=== PATIENT | female | born 1975 | race Caucasian/White ===

== ENCOUNTER 2017-09-30 11:09 | Emergency (ER) | payer MEDICAID, SELFPAY ==
[2017-09-30 11:11] VITALS: BP 161/90; PULSE 93; RESP 16; TEMP 36.4; O2SAT 99; BMI 22.8
--- NOTE | 2017-09-30 11:33 | ED.DCSUM_ITS ---
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 in front of her slightly to the left she felt discomfort in her neck that is persisted, there is no radiation into her extremities, she has no direct trauma, no nausea vomiting fever cough chest pain numbness weakness or paresthesias but she has neck discomfort with any type of movement flexion extension or rotation, she has no history of neck ailment she is concerned about a fracture Physical Examination: [] On exam she is a large woman she is in no distress her head neck chest exam unremarkable lungs are clear heart tones are distant abdomen soft nontender the upper lower extremities unremarkable without cyanosis clubbing or edema her gait is strong sitting stable her motor and sensory strength exam are normal she is very mild pain to palpation of the midline neck there is some pain discomfort to the right and left paracervical regions there is no instability or step-off she is able to rotate her right left flex and extend but has some mild discomfort and there is no neurologic abnormalities or radiation when she moves her neck Test Results: [] Emergency Department Course and Treatment: [] Given her complaints and her concerns she is medicated with morphine Zofran CT neck noncontrast is obtained because of her concerns CT neck is unremarkable all this was explained to the patient she will follow with her doctors that she indicated understands she may require definitive other management as an outpatient Naprosyn for pain she will return for change in symptoms Treatment Plan: [] Disposition: [] Home stable Impression: [] Neck pain This note was generated with [employer] dictation software. It may contain incorrect words, spelling, and punctuation that were not noted in review of the chart prior to signing ED Disposition - Plan for ED Patient: Chief Complaint: Other, Pain/Inj Referrals: Clarissa Self MD [STAFF PHYSICIAN] -
[2017-09-30] MEDS: Ondansetron ODT 4 MG Tablet PO (11:51)
[2017-09-30] MEDS: morphine 8 MG/ML Syringe SC (11:52)
--- NOTE | 2017-09-30 13:18 | ED.DEP ---
ED Disposition - Plan for ED Patient: Chief Complaint: Other, Pain/Inj Prescriptions: Naproxen [Naprosyn] 500 mg PO BID PRN #20 tab Referrals: Clarissa Self MD [STAFF PHYSICIAN] -
[2017-09-30 13:52] VITALS: PULSE 82; RESP 17; O2SAT 97
== END 2017-09-30 13:53 | disposition home or self-care (01) ==
PROVIDERS: Emergency Provider Emergency Medicine; Family Provider Internal Medicine; PCP Internal Medicine
DX: M54.2 Cervicalgia (principal)
CPT/HCPCS: 72125; 96372; 99283

== ENCOUNTER 2018-03-24 11:24 | Emergency (ER) | payer MEDICAID, SELFPAY ==
[2018-03-24 11:25] VITALS: BP 173/100; PULSE 101; RESP 20; TEMP 36.6; O2SAT 97; BMI 38.7
[2018-03-24 13:15] LABS: Bacteria 0 SEEN /hpf (None Seen); Mucous, Urine 0 SEEN /hpf (<or=2+); Red Blood Cells-Urine 0 SEEN /hpf (0-5); White Blood Cells 0 SEEN /hpf (0-5)
[2018-03-24 13:17] VITALS: BP 121/73; PULSE 84; RESP 16; O2SAT 98
[2018-03-24 13:19] LABS: Color, Urine Yellow (Yellow); Glucose, Dipstick Normal (Normal); Ketone-Dipstick Negative (Negative); Leukocyte Esterase-Dipstick Negative /ul (Negative); Nitrite-Dipstick Negative (Negative); Occult Blood-Urine 10 /ul (Negative); Protein-Dipstick Negative (Negative); Specific Gravity, Urine 1.015 (1.002-1.030); Urine Bilirubin Dipstick Negative (Negative); Urine Clarity Clear (Clear); Urine Urobilinogen Normal (Normal)
[2018-03-24 13:27] LABS: Squamous Epithelial Cells - UA 0-5 SEEN /hpf (5-10)
[2018-03-24 13:31] LABS: Anion Gap 10 (5-15); BUN 10 mg/dL (7-18); BUN/Creat Ratio 16.3 RATIO (10-20); Calcium,Total 8.6 mg/dL (8.5-10.1); Chloride 105 mmol/L (98-107); Creatinine, Serum 0.61 mg/dL (0.55-1.02); EST Glomerular Filtration Rate 115 mL/min (>60); Est Glom Filt Rate - Afr Amer 139 mL/min (>60); Estimated Creatinine Clearance 114.77 ml/min; Glucose 84 mg/dL (74-106); Sodium Level 141 mmol/L (136-145)
[2018-03-24] MEDS: Mixture 30 ML Bottle 10 ML TOPICAL (15:16)
--- NOTE | 2018-03-24 15:36 | ED.VISSUMM ---
- ER Visit Summary Date of Service: 03/24/18 Chief Complaint: Nosebleed History of Present Illness: The patient is a 42 F who presents with intermittent bleeding from the right side of her nose. She reports blood predominantly in the back of her throat. There is no history of trauma. There is no history of hypertension, bleeding diathesis, she is on no antiplatelet or anticoagulant. She denies prior history of nosebleed. She does have history anxiety and hyperactive airway disease. Physical Examination: Vitals are marked for an elevated blood pressure of 173/80. Repeat blood pressure several hours later without treatment is 121/73. BMI is 38.7. There is blood noted in the posterior pharynx. There is no blood over Calci-Mix plexus and there is no blood noted inferior to the inferior turbinate. There is blood noted past the inferior turbinate. The remainder of the HEENT exam is unremarkable. There is no bruising noted. There is no petechia. Test Results: Since BMP and UA are negative. Emergency Department Course and Treatment: Because of elevated blood pressure and not seen a doctor in several years basic mental panel and UA were obtained to assess for endorgan renal dysfunction. Treatment Plan: Patient was anesthetized with Dameon solution. A 7.5 Italian Rhino Rocket was placed. She was placed on antibiotics. She was referred to Dr. Rusty Perry. Disposition: Discharge in stable improved condition Impression: Epistaxis right uncertain etiology This note was generated with [employer] dictation software. It may contain incorrect words, spelling, and punctuation that were not noted in review of the chart prior to signing ED Disposition - Plan for ED Patient: Disposition: Home or Assisted Living Instructions: Nosebleed Prescriptions: Amoxicillin 875 mg PO BID #10 tab Referrals: Jess Almaraz MD [Primary Care Provider] - Charbel Perry MD [STAFF PHYSICIAN] - 3-5 Days Additional Instructions: Call Dr. Perry's office for appointment to be seen in 3-5 days. Take antibiotics until packing is removed.
[2018-03-24 15:57] VITALS: BP 141/92; RESP 18; O2SAT 97
== END 2018-03-24 15:58 | disposition home or self-care (01) ==
PROVIDERS: Emergency Provider Emergency Medicine; Family Provider Internal Medicine; PCP Internal Medicine
DX: R04.0 Epistaxis (principal); E66.9 Obesity, unspecified; Z68.38 Body mass index [BMI] 38.0-38.9, adult; J45.909 Unspecified asthma, uncomplicated; F41.9 Anxiety disorder, unspecified
CPT/HCPCS: 30905; 80048; 81001; 99283; A4216

== ENCOUNTER 2018-03-25 08:18 | Emergency (ER) | payer MEDICAID, SELFPAY ==
[2018-03-24 11:25] VITALS: BMI 38.7
[2018-03-25 08:19] VITALS: BP 144/110; PULSE 112; RESP 20; TEMP 36.7; O2SAT 100; BMI 37.9
--- NOTE | 2018-03-25 08:37 | ED.DCSUM_ITS ---
- ER Visit Summary Date of Service: 03/25/18 Chief Complaint: Nosebleed History of Present Illness: The patient is a 42 F seen in the ED yesterday for nosebleed. Packing was placed. She reports headache and increased anxiety from having the packing and is requesting it to be removed. She did call ENT and has an appointment on the . Physical Examination: Blood pressure is 144/110, heart rate 112. Patient sitting upright in bed. She is intermittently tearful. Head neck examination does reveal Rhino Rocket in place in the right nare. No bleeding noted around the packing. Heart is tachycardic. Lungs sounds are clear. Test Results: [] Emergency Department Course and Treatment: Balloon was deflated and Rhino Rocket is removed. There is a scant amount of blood on the packing. Following packing removal she does have a small amount of blood along the distal right nare. Turbinates are swollen but I do not see significant bleeding up high in the nasal passage. Was given aspirin along with Tylenol for headache. On repeat evaluation she is had no further bleeding. She is much more comfortable. She will be given a nasal clamp to use at home if she has any rebleeding. She will follow-up with ENT next week as planned. Treatment Plan: [] Disposition: Discharge Impression: Nasal packing removal This note was generated with [employer] dictation software. It may contain incorrect words, spelling, and punctuation that were not noted in review of the chart prior to signing ED Disposition - Plan for ED Patient: Referrals: Jess Almaraz MD [Primary Care Provider] -
[2018-03-25] MEDS: Acetaminophen 500 MG Tablet 1000 MG PO (08:55)
[2018-03-25] MEDS: Oxymetazoline 0.05% 1 SPRAY SPRAY.BTL 2 SPRAY NASAL (08:55)
[2018-03-25 09:01] VITALS: TEMP 36.7
--- NOTE | 2018-03-25 09:24 | ED.DEP ---
ED Disposition - Plan for ED Patient: Disposition: Home or Assisted Living Instructions: Nosebleed Referrals: Jess Almaraz MD [Primary Care Provider] - Additional Instructions: Follow-up with ENT next week as scheduled.
== END 2018-03-25 09:50 | disposition home or self-care (01) ==
PROVIDERS: Emergency Provider Emergency Medicine; Family Provider Internal Medicine; PCP Internal Medicine
DX: Z48.00 Encounter for change or removal of nonsurgical wound dressing (principal); J45.909 Unspecified asthma, uncomplicated; F31.9 Bipolar disorder, unspecified; F41.9 Anxiety disorder, unspecified; F20.9 Schizophrenia, unspecified; Z79.899 Other long term (current) drug therapy; Z72.0 Tobacco use
CPT/HCPCS: 99283

== ENCOUNTER 2019-04-30 19:19 | Emergency (ER) | payer MEDICAID, SELFPAY ==
[2019-04-30 19:21] VITALS: BP 169/83; PULSE 96; RESP 17; TEMP 36.4; O2SAT 96; BMI 51.0
[2019-04-30 21:42] LABS: Bacteria 0 SEEN /hpf (None Seen); Mucous, Urine 0 SEEN /hpf (<or=2+); Squamous Epithelial Cells - UA 0 SEEN /hpf (5-10)
[2019-04-30 21:46] LABS: Color, Urine Yellow (Yellow); Glucose, Dipstick Normal (Normal); Ketone-Dipstick 5 mg/dl (Negative); Leukocyte Esterase-Dipstick 500 /ul (Negative); Nitrite-Dipstick Negative (Negative); Occult Blood-Urine 50 /ul (Negative); Protein-Dipstick 30 mg/dl (Negative); Specific Gravity, Urine 1.025 (1.002-1.030); Urine Clarity Cloudy (Clear); Urine Urobilinogen 1 mg/dl (Normal)
[2019-04-30 21:48] LABS: Urine Bilirubin Dipstick 1 mg/dL (Negative)
[2019-04-30 21:49] LABS: Internal QC Validated? YES +Cl - CLEAR BKGD; Pregnancy, Urine Negative Negative
[2019-04-30 21:54] LABS: Red Blood Cells-Urine 5-10 SEEN /hpf (0-5); White Blood Cells 25-50 SEEN /hpf (0-5)
--- NOTE | 2019-04-30 22:00 | RAD_ITS ---
STUDY: X-RAY - ABDOMEN/PELVIS REASON FOR EXAM: Female, 43 years old. Constipation x 2 weeks TECHNIQUE: Two AP supine views of the abdomen and pelvis. COMPARISON: 11/02/2015. FINDINGS: Normal visualized lung bases. There is an unremarkable bowel gas pattern. There is no demonstrated free abdominal air. Moderate to large stool are throughout the colon. Normal soft tissue structures. Normal visualized osseous structures. RAD/Abdomen Single View IMPRESSION: Moderate to large stool are throughout the colon. Electronically Signed: Vini Vallecillo, at 22:44 EDT Tel , Service support ,
--- NOTE | 2019-04-30 22:42 | ED.DCSUM_ITS ---
History of Present Illness Chief Complaint: Constipation Informant: Patient Onset: Weeks Current Severity: Moderate Maximum Severity: Moderate Narrative: Presents with bilateral flank pain ongoing for most 2 weeks. She was seen in urgent care diagnosed with a UTI. She is still on Bactrim. She states she was given a 10-day course. Patient reports being constipated. She is still passing gas but has not had stool in almost 2 weeks. She denies change in her diet. The only new medication is Bactrim for her UTI. Patient believes that she is emptying her bladder when she urinates. She is only had problems with c onstipation one prior time when she was . - Past Medical History (1) Asthma Status: Chronic (2) Bipolar disorder Status: Chronic (3) Schizophrenia Status: Chronic Past Medical History - Allergies and Home Meds Allergies/Adverse Reactions: Allergies benzonatate [From Tessalon Perles] Allergy (Verified 04/30/19 19:20) Angioedema acetaminophen [From Vicodin] Adverse Reaction (Verified 04/30/19 19:20) Vomiting hydrocodone bitartrate [From Vicodin] Adverse Reaction (Verified 04/30/19 19:20) Vomiting prednisone Adverse Reaction (Verified 04/30/19 19:20) Nausea/Vom/Diarrhea Primary Care Physician: Jess Almaraz MD [Primary Care Provider] - Prior records reviewed: Yes Lives: Spouse/ Significant Other Smoking Status: Current every day smoker Review of Systems General: Denies: Chills, Fever Eyes: Denies: Visual changes - bilaterally ENT: Denies: Bilateral ear pain Cardiovascular: Denies: Chest pain Respiratory: Denies: Dyspnea, Cough Gastrointestinal: Reports: Abdominal pain, Constipation. Denies: Nausea, Vomiting, Diarrhea Genitourinary: Denies: Dysuria Musculoskeletal: Reports: Back pain - Flank. Denies: Extremity Pain Skin: Denies: Rash Neurological: Denies: Headache Physical Exam Vital Signs/Narrative: Vital Signs Temp Pulse Resp BP Pulse Ox 04/30/19 19:21 97.6 F L 96 17 169/83 H 96 Inital Vital Signs reviewed: Yes General: Well nourished, Well developed Head: Normocephalic ENT: Moist mucous membranes Neck: Supple Cardiovascular: Regular rate, Regular rhythm Respiratory: No distress, CTA bilaterally Abdomen: Soft, Nontender, Normal bowel sounds Extremities: Nontender Skin: Normal color Neurological: Alert, Oriented x3 Psychological: Normal affect Diagnostic/Tx/Re-eval 04/30/19 22:00 Abdomen Single View [RAD] Stat Abdominal x-ray per my review does reveal constipation with large amount of stool in both the ascending and descending colon. No sign of obstruction. Laboratory Results 04/30/19 04/30/19 21:30 21:30 Urine Color Yellow Urine Clarity Cloudy Urine pH 5.0 Ur Specific [place] 1.025 Urine Protein 30 H Urine Glucose (UA) Normal Urine Ketones 5 H Urine Occult Blood 50 H Urine Nitrite Negative Urine Bilirubin 1 H Urine Urobilinogen 1 H Ur Leukocyte Esterase 500 H Urine RBC 5-10 SEEN Urine WBC 25-50 SEEN Ur Squamous Epith Cells 0 SEEN Urine Bacteria 0 SEEN Urine Mucus 0 SEEN Urine Test Negative - Medical Decision Making Patient is given a dose of Bentyl here to help with cramping. Test results discussed with the patient. Urine will be sent for culture. She states she still has a few days of Bactrim left. I suspect she still has white count in her urine secondary to resolving infection. Patient will be given a soapsuds enema here. She will be given a bottle of mag citrate to take tomorrow. ED Disposition - Plan for ED Patient: Disposition: Home or Assisted Living Diagnosis: Constipation Instructions: CONSTIPATION (Adult) Referrals: Jess Almaraz MD [Primary Care Provider] - 1 Week if not improving Additional Instructions: Magnesium citrate - Drink 1/2 bottle for constipation. If no results in 3-4 hours, drink the rest of the bottle.
[2019-04-30] MEDS: Dicyclomine 10 MG Capsule 20 MG PO (22:51)
[2019-04-30] MEDS: Magnesium Citrate 300 ML PO (23:03)
[2019-04-30 23:46] VITALS: BP 169/83; PULSE 96; RESP 17; O2SAT 96
== END 2019-04-30 23:47 | disposition home or self-care (01) ==
PROVIDERS: Emergency Provider Emergency Medicine; PCP Internal Medicine
DX: K59.00 Constipation, unspecified (principal); N39.0 Urinary tract infection, site not specified; F31.9 Bipolar disorder, unspecified; F20.9 Schizophrenia, unspecified; J45.909 Unspecified asthma, uncomplicated; F17.200 Nicotine dependence, unspecified, uncomplicated
CPT/HCPCS: 74018; 81001; 81025; 87086; 87088; 99284

== ENCOUNTER 2019-05-04 22:49 | Emergency (ER) | payer MEDICAID, SELFPAY ==
[2019-05-04 22:51] VITALS: BP 138/73; PULSE 90; RESP 16; TEMP 36.6; O2SAT 100; BMI 51.5
--- NOTE | 2019-05-04 23:16 | ED.DCSUM_ITS ---
History of Present Illness Chief Complaint: Constipation Informant: Patient Onset: Weeks - 2 Context: Gradual Onset Timing: Continuous - consitpation, Intermittent - pains, Lasts - seconds- minutes, w/r/t pains Quality: sharp pains Location: bilat flank, radiating into rectum Current Severity: gone Maximum Severity: Moderate Worsened by: n/a Relieved by: nothing; tried OTC laxative and magnesium citrate Associated Symptoms: no nausea/vomiting/BRBPR Narrative: Patient was seen here 4 days ago for the same thing, she was given magnesium citrate and an enema, she had a little results from the enema here in ER but still feels backed up and cannot have a bowel movement. She feels the need to and states there is a large amount of stool right there, but she cannot get it out. She denies any new symptoms. She has had these issues in the past. She had an x-ray 4 days ago here showing large amount of stool throughout the colon. Prior similar symptoms: Yes - Past Medical History (1) Asthma Status: Chronic (2) Bipolar disorder Status: Chronic (3) Schizophrenia Status: Chronic Past Medical History - Allergies and Home Meds Allergies/Adverse Reactions: Allergies benzonatate [From Tessalon Perles] Allergy (Verified 05/04/19 22:54) Angioedema acetaminophen [From Vicodin] Adverse Reaction (Verified 05/04/19 22:54) Vomiting hydrocodone bitartrate [From Vicodin] Adverse Reaction (Verified 05/04/19 22:54) Vomiting prednisone Adverse Reaction (Verified 05/04/19 22:54) Nausea/Vom/Diarrhea Primary Care Physician: Jess Almaraz MD [Primary Care Provider] - As Needed Lives: Spouse/ Significant Other Smoking Status: Current every day smoker Review of Systems General: Denies: Chills, Fever, Sweats Eyes: Denies: Visual changes - bilaterally, Diplopia ENT: Denies: Rhinorrhea, Sore throat Cardiovascular: Denies: Chest pain, Palpitations Respiratory: Denies: Dyspnea, Cough, Dyspnea on exertion Gastrointestinal: Reports: Abdominal pain, Constipation. Denies: Nausea, Vomiting, Diarrhea, Melena, Hematochezia Genitourinary: Denies: Dysuria, Hematuria, Frequency Musculoskeletal: Denies: Back pain, Extremity Pain Skin: Denies: Rash, Wounds Neurological: Denies: Headache, Weakness, Numbness Physical Exam Vital Signs/Narrative: Vital Signs Temp Pulse Resp BP Pulse Ox 05/04/19 22:51 97.9 F 90 16 138/73 H 100 Inital Vital Signs reviewed: Yes General: Well nourished, Well developed, No Acute Distress Head: Normocephalic, Atraumatic Eyes: Perrl, EOMI ENT: Moist mucous membranes, No rhinorrhea Neck: Supple, Nontender Cardiovascular: Regular rate, Regular rhythm, No murmurs. Negative for: Tachycardia Respiratory: No distress, CTA bilaterally, Chest nontender Abdomen: Soft, Nontender, Nondistended, Normal bowel sounds Back: Nontender, Normal Inspection Extremities: Nontender, No edema Skin: Normal color, No rash, No Trauma Neurological: Alert, Oriented x3, Cranial nerves II-XII grossly intact, Normal Strength, Normal Sensation, Normal Gait Psychological: Normal affect, Normal Mood Diagnostic/Tx/Re-eval - Medical Decision Making After initial evaluated patient, I returned with the nurse 15 or 20 minutes later to perform a rectal on her, which she consented to but she went to the restroom to urinate was actually able to push a small amount of stool out that was very hard, but not very much. She still consented to the rectal exam, her rectal vault was empty as far as my finger could reach. There was no blood or melanotic appearing stool. She was given soapsuds enema. Afterward she had a large bowel movement and felt much better. She was advised to use MiraLAX ted ly, and follow-up with her doctor. ED Disposition - Plan for ED Patient: Disposition: Home or Assisted Living Diagnosis: Constipation Instructions: CONSTIPATION (Adult) Referrals: Jess Almaraz MD [Primary Care Provider] - As Needed Additional Instructions: Use MiraLAX 1 capful daily, dissolved in at least 8 ounces of any liquid. Do this regardless of if you are having good bowel movements or not.
[2019-05-05 01:41] VITALS: BP 140/74; PULSE 107; RESP 16; O2SAT 97
== END 2019-05-05 01:42 | disposition home or self-care (01) ==
PROVIDERS: Emergency Provider Emergency Medicine; PCP Internal Medicine
DX: K59.00 Constipation, unspecified (principal); F20.9 Schizophrenia, unspecified; F31.9 Bipolar disorder, unspecified; J45.909 Unspecified asthma, uncomplicated; F17.200 Nicotine dependence, unspecified, uncomplicated
CPT/HCPCS: 99284

== ENCOUNTER 2019-11-14 16:57 | Emergency (ER) | payer MEDICAID, SELFPAY ==
[2019-11-14 16:58] VITALS: BP 160/94; PULSE 99; RESP 24; TEMP 36.1; O2SAT 99; BMI 52.3
[2019-11-14 17:10] VITALS: O2SAT 97
[2019-11-14 17:40] VITALS: PULSE 96; RESP 18
[2019-11-14] MEDS: Ipratropium/Albuterol Sulfate 3 ML AMPUL.NEB INHALATION (17:40)
--- NOTE | 2019-11-14 17:57 | RAD_ITS ---
STUDY: X-RAY CHEST REASON FOR EXAM: Female, 44 years old. SOB, COVID TESTED TODAY TECHNIQUE: Single frontal view of the chest. COMPARISON: 11/28/2013. FINDINGS: Cardiac silhouette unremarkable. Pulmonary vascularity unremarkable. Aorta unremarkable. No focal airspace opacities. No pleural effusions. Upper abdomen unremarkable. Osseous structures intact. No pneumothorax. RAD/Chest 1 View (Portable) IMPRESSION: No acute cardiopulmonary process identified. Electronically Signed: Vini Vallecillo, at 20:22 EDT Tel , Service support ,
--- NOTE | 2019-11-14 19:32 | ED.RN ---
THIS RN WENT TO CHECK ON PT. PT NOT PRESENT IN ROOM OR DEPARTMENT. DR. HUFFMAN INFORMED. PT ELOPED PRIOR TO RECEIVING D/C INSTRUCTIONS.
--- NOTE | 2019-11-14 23:20 | ED.VIS.GEN ---
History of Present Illness Chief Complaint: Shortness of Breath Informant: Patient Narrative: Patient is a 44-year-old female who presents to the emergency department for shortness of breath and cough. Her symptoms started earlier today. She does have a history of asthma. She was seen by her PCP earlier today who referred her to the emergency department for COVID testing. She denies any fevers or chills. No nausea/vomiting or diarrhea. No known sick contacts. Patient believes that this is an acute flareup of her asthma. She is a current every day smoker. He denies any associated chest pain. No abdominal pain. No leg swelling or calf pain. Her cough has been nonproductive. She has not tried taking anything for this as she has been out of her home inhalers. Past Medical History - Allergies and Home Meds Allergies/Adverse Reactions: Allergies benzonatate [From Tessalon Perles] Allergy (Verified 11/14/19 16:57) Angioedema acetaminophen [From Vicodin] Adverse Reaction (Verified 11/14/19 16:57) Vomiting hydrocodone bitartrate [From Vicodin] Adverse Reaction (Verified 11/14/19 16:57) Vomiting prednisone Adverse Reaction (Verified 11/14/19 16:57) Nausea/Vom/Diarrhea Primary Care Physician: Jess Almaraz MD [Primary Care Provider] - Prior records reviewed: Yes Past Medical History: - - Asthma Smoking Status: Current every day smoker Review of Systems All systems negative except as indicated General: Denies: Chills, Fever, Sweats Eyes: Denies: Visual changes - bilaterally, Diplopia ENT: Denies: Rhinorrhea, Sore throat Cardiovascular: Denies: Chest pain, Palpitations Respiratory: Reports: Dyspnea, Cough. Denies: Sputum Gastrointestinal: Denies: Abdominal pain, Nausea, Vomiting, Diarrhea Genitourinary: Denies: Dysuria, Hematuria, Frequency Musculoskeletal: Denies: Back pain, Extremity Pain Skin: Denies: Rash, Wounds Neurological: Denies: Headache, Weakness, Numbness Physical Exam Inital Vital Signs reviewed: Yes General: Well nourished, Well developed, No Acute Distress Head: Normocephalic, Atraumatic Eyes: Perrl, EOMI ENT: Moist mucous membranes, No rhinorrhea Neck: Supple, Nontender Cardiovascular: Regular rate, Regular rhythm, No murmurs Respiratory: No distress, Chest nontender, Wheezing Abdomen: Soft, Nontender, Nondistended, Normal bowel sounds Back: Nontender, Normal Inspection Extremities: Nontender. Negative for: Edema, Calf Tenderness Skin: Normal color, No rash Neurological: Alert, Oriented x3, Cranial nerves II-XII grossly intact, Normal Strength, Normal Sensation Psychological: Normal affect, Normal Mood Diagnostic/Tx/Re-eval - Medical Decision Making Patient presents to emergency department for shortness of breath and cough. On physical exam she does have wheezing bilaterally. Eyes does not appear in any acute distress. Her coronavirus test is pending. X-ray obtained which did not reveal any acute cardiopulmonary abnormality. Patient was feeling much better after breathing treatment. While awaiting results from the radiologist patient eloped from the department. Patient otherwise would have been discharged home with albuterol inhaler. She needs to follow-up with her PCP. ED Disposition - Plan for ED Patient: Disposition: Home or Assisted Living Diagnosis: Asthma exacerbation, Cough, Dyspnea Instructions: ED REACTIVE AIRWAY DISEASE Adult Referrals: Jess Almaraz MD [Primary Care Provider] - 2 Days
== END 2019-11-14 19:38 | disposition home or self-care (01) ==
LOC: ED 17:32
PROVIDERS: Emergency Provider Emergency Medicine; PCP Internal Medicine
DX: J45.901 Unspecified asthma with (acute) exacerbation (principal); F17.200 Nicotine dependence, unspecified, uncomplicated
CPT/HCPCS: 71045; 94640; 99281

== ENCOUNTER 2021-12-20 16:34 | Emergency (ER) | payer MEDICAID, SELFPAY ==
[2021-12-20 16:35] VITALS: BP 147/107; PULSE 103; RESP 16; TEMP 35.3; O2SAT 97; BMI 46.0
--- NOTE | 2021-12-20 17:36 | ED.VIS.DENTA ---
HPI History of Present Illness Chief Complaint: Dental Detail of Chief Complaint: Fracture left upper molar. Pain. 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 Complaining of pain. This occurred about an hour or 2 ago. Prior similar symptoms: No Recent Illness/Hospitalization: No PFSH PFSH Medical History (Updated 12/20/21 @ 17:42 by Louisa Osborn) Asthma Obesity Home Medications oxycodone-acetaminophen 5 mg-325 mg tablet (Percocet) 1 tab PO Q4H PRN pain 4 days #16 tabs 12/20/21 [Rx Last Taken Unknown] Allergy/AdvReac Type Severity Reaction Status Date / Time benzonatate Allergy Angioedema Verified 11/14/19 16:57 [From Tessalon Perles] acetaminophen [From Vicodin] AdvReac Vomiting Verified 11/14/19 16:57 hydrocodone bitartrate AdvReac Vomiting Verified 11/14/19 16:57 [From Vicodin] prednisone AdvReac Nausea/Vom/ Verified 11/14/19 16:57 Diarrhea Social History Smoking Status: Current every day smoker ROS ROS ED ROS Narrative Denies recent illness. Review of Systems ROS Unobtainable: Denies due to encephalopathy Constitutional Constitutional ED: Denies chills or fever(s) Eyes Eyes: Denies blurry vision ENT ENT ED: Denies ear pain Cardiovascular Cardiovascular: Denies chest pain Respiratory/Chest Respiratory/Chest: Denies cough or dyspnea Gastrointestinal Gastrointestinal: Denies abdominal pain Genitourinary Genitourinary ED: Denies dysuria or hematuria Musculoskeletal Musculoskeletal: Denies arthralgias Integumentary Denies abscess Neurologic Neurologic: Denies headache(s) Psychiatric Psychiatric: Denies anxiety Endocrine Endocrinology: Denies cold intolerance Hematologic/Lymphatic Hematologic/Lymphatic: Denies easy bleeding Allergic/Immunologic Allergic/Immunologic ED: Denies mouth swelling or tongue swelling EXAM Physical Exam Narrative Exam Narrative: 46-year-old female no acute distress vital signs stable afebrile. H EENT exam left upper second molar is fractured. There is pieces of the tooth missing. It is loose but I am unable to remove it. There is no gingival swelling or signs of infection. She can open and close her mouth any difficulty. Posterior pharynx unremarkable. Lungs are clear. Heart regular rhythm. Otherwise exam unremarkable. Const Vital Signs: 12/20/21 16:35 Temperature 95.6 F L Temperature Source Temporal Pulse Rate 103 H Respiratory Rate 16 Blood Pressure 147/107 H Blood Pressure Mean 120 Pulse Ox 97 Oxygen Delivery Method Room Air Positive well developed and obese; Negative for cachectic, contractures or unkempt General Appearance ED: well developed and NAD; Negative for unkempt, cachectic or contractures Nutritional Appearance: obese; Negative for cachectic HEENT Denies other HEENT Narrative: Left upper second molar fractured. Tender. No bleeding. No infection. tenderness; Negative for trauma or other Face and Sinus: sinuses nontender Throat: posterior oropharynx normal Eyes PERRL and EOMs intact bilaterally General Eye ED: Negative for pale conjunctiva or scleral icterus Neck no lymphadenopathy and no JVD General: normal visual inspection; Negative for anterior neck swelling, tenderness or submandibular swelling Lymph Lymphatic: no lymphadenopathy noted; Negative for lymphadenopathy Chest Wall inspection of chest normal and palpation of chest normal Chest: Negative for other Resp normal respiratory effort, no retractions and clear to auscultation bilaterally Cardio regular rate, regular rhythm, S1 normal heart sound, S2 normal heart sound and no murmurs Palpation: Negative for palpable S3 Rate: Negative for bradycardia Rhythm: Negative for abnormal rhythm GI normal to inspection, nondistended, normoactive bowel sounds, non-tender, non-distended and no masses Inspection: Negative for other Palpation: Negative for soft Bladder / Kidney Exam: No other Extremity normal to inspection General Extremety ED: Negative for edema or other findings General Extremity: Negative for edema or other findings Neuro oriented x3, CN's II-XII intact bilaterally, moves all extremities, no focal motor deficits and no sensory deficits noted Sensorium / Orientation: alert, oriented to person, oriented to place and oriented to time Motor Exam: strength 5/5 throughout Psych mental status grossly normal Appearance: Negative for unkempt Attitude: No agitated Mood & Affect: Negative for depressed, anxious or tearful Skin no rashes or lesions noted and no wounds General Skin Exam: Negative for other MDM MDM MDM Narrative Medical decision making narrative: Patient with a fractured left upper tooth. She has a dentist in [place] she will call and follow-up with on Wednesday. Motrin for pain. She will be written for Percocet for more severe pain to get her through till she can see her dentist. Discharge Plan Triage Chief Complaint: Dental ED Provider: Gordo Patrick Dx/Rx/DC Orders Clinical Impression: Dental trauma, Pain, dental Instructions: ED Dental Pain Prescriptions: New oxycodone-acetaminophen [Percocet] 5-325 mg tablet 1 tab PO Q4H MDD 6 PRN (Reason: pain) 4 Days Qty: 16 0RF Primary Care Provider: Care Physician,No Primary Referrals: Jess Almaraz MD [Med Staff - [facility]] - Activity Restrictions/Additional Instructions: See your dentist as soon as possible. Motrin for pain and swelling. Percocet for pain. Ice to your jaw. Disposition Disposition: Home, Self Care
[2021-12-20] MEDS: oxyCODONE 5 MG Tablet 10 MG PO (17:43)
== END 2021-12-20 17:48 | disposition home or self-care (01) ==
PROVIDERS: Emergency Provider Emergency Medicine; Visit Provider Emergency Medicine
DX: S02.5XXA Fracture of tooth (traumatic), initial encounter for closed fracture (principal); K08.89 Other specified disorders of teeth and supporting structures; F17.200 Nicotine dependence, unspecified, uncomplicated; X58.XXXA Exposure to other specified factors, initial encounter
CPT/HCPCS: 99283